=== PATIENT | female | born 1990 | race Caucasian/White ===

== ENCOUNTER 2023-10-04 17:39 | Emergency (ER) | payer OTHER, SELFPAY ==
[2023-10-04 17:42] VITALS: BP 119/85
--- NOTE | 2023-10-04 19:36 | ED.GENMED ---
History of Present Illness
General
Chief Complaint: Musculo-Skeletal Complaint
Source: patient and family
Exam Limitations: none
Time Seen by Provider: 10/04/23 18:32
Nursing documentation reviewed up to this point in time: agreed with
History of Present Illness
History of Present Illness:
32-year-old female presenting to the emergency department today with concerns of right-sided ankle discomfort after twisting her ankle earlier this morning initially was able to walk but now having worsening swelling discomfort to the area. Denies
any numbness weakness or additional concerns no additional injuries.
Review of Systems
Review of Systems
Allergies reviewed?: Yes
All Other Systems: ROS reviewed and negative except as documented in HPI and ROS
Phy Exam
Physical Exam
Physical Exam:
GENERAL: Alert , in no apparent distress
EYE: pupils equal and reactive
NECK: Supple, no significant adenopathy.
ENT: o/p clr, mmm.
CARDIAC: Regular rate and rhythm .
LUNGS: Clear breath sounds bilaterally, no acute respiratory distress, no wheezes/rales/rhonchi
ABDOMEN: Soft, without focal tenderness, no r/g, no cvat
NEUROLOGICAL: Alert and oriented, no focal neuro deficits
SKIN: Warm and dry, skin intact.
MUSCULOSKELETAL: Swelling discomfort to the anterior ankle as well as the lateral malleolus good range of motion otherwise increased discomfort with forced plantarflexion. Mild redness and tenderness palpation no tenderness to the midfoot or
forefoot or to the rios or knee., well perfused.
PSYCH: Normal and appropriate interaction.
Course
Orders/Labs/Results
Orders:
Orders
10/04/23 17:47
CR Ankle - Right Min 3 Views * Urgent
Comment:
Reason For Exam: fall and ankle pain
10/04/23 19:11
Crutches-Treatment ONCE
boot [Ortho Boot Right- Treatment] ONCE
Short or tall?: Tall
Acetaminophen [Tylenol] 650 mg PO NOW STA
Vital Signs
Initial and Last Documented VS:
Initial Vital Signs
Temp Pulse BP Pulse Ox
98.7 F 80 119/85 100
10/04/23 17:42 10/04/23 17:42 10/04/23 17:42 10/04/23 17:42
Last Documented Vital Signs
Temp Pulse BP Pulse Ox
98.7 F 80 119/85 100
10/04/23 17:42 10/04/23 17:42 10/04/23 17:42 10/04/23 17:42
MDM/Problems Addressed
MDM/Problems Addressed:
32-year-old female presenting to the emergency department with concerns of right-sided ankle discomfort after twisting her ankle earlier today was able to walk. X-ray without signs of fracture patient with likely sprain. Patient is
recommended to use Tylenol for discomfort as well as ice and elevate. Was given protective boot and crutches and information for follow-up as needed. Return precautions given.
*Critical Care Note
Total Time (30-74mins, 75-104mins- exclusive of procedures): Not Applicable
ED Attending Note
-
Portions of this chart may have been created with voice recognition software.� Occasional wrong word or��sound alike� substitutions may have occurred due to the inherent limitations of voice recognition software.
Discharge Plan
Departure
Patient Disposition: Home (Routine Discharge)
Date of Disposition: 10/04/23
Time of Disposition: 19:39
Patient with high blood pressure during this ER visit?: No
Condition: Good
Covid-19: Not Applicable
Discharge Problem:
Ankle sprain
Instructions: Ankle sprain
Prescriptions:
No Action
No Current Medications
0
Referrals:
Marcos Mckeon MD [Active] - Follow up in 5-7 days
UNKNOWN - PT DOES,NOT KNOW [Family Provider] -
Activity Restrictions/Additional Instructions:
You came to the emergency department today with concerns of ankle discomfort. This is likely a sprain. Please rest ice compress and elevate. Return to the emergency department for any worsening, new or concerning symptoms.
Interventions
Interventions:
*General Assessment Last Done: 10/04/23 17:44
*ED COVID-19 Vaccine History Last Done: 10/04/23 17:44
Discharge Date and Time
Print Language: ALB[place]
[2023-10-04] MEDS: TYLENOL 650 MG PO (19:45)
== END 2023-10-04 20:01 | disposition home or self-care (01) ==
LOC: EMR 17:39
PROVIDERS: EMERGENCY PHYSICIAN Student in an Organized Health Care Education/Training Program
DX: S93.401A Sprain of unspecified ligament of right ankle, initial encounter (principal); X50.1XXA Overexertion from prolonged static or awkward postures, initial encounter; W19.XXXA Unspecified fall, initial encounter; Z33.1 Pregnant state, incidental; Z88.1 Allergy status to other antibiotic agents; Z88.2 Allergy status to sulfonamides
CPT/HCPCS: 99283; 29515; 73610